=== PATIENT | female | born 1950 | race Caucasian/White ===

== ENCOUNTER → 2019-01-16 | Outpatient (CLI) | payer OTHER, BC ==
[~2019-01-16] VITALS: Ht 175.3 cm; Wt 83.9 kg
[~2019-01-16] MED LIST: COZAAR 25 MG TA25 M1 PO; SERTRALINE HCL100 MG PO
[2019-01-16 06:55] VITALS: BP 124/66
--- NOTE | 2019-01-16 08:39 | NUR ---
0820-PT RESPONDS TO VERBAL STIMULI. FAMILY AT BEDSIDE AND DR. GREGORY DISCUSSES AALIYAH RESULTS WITH THEM. PT HAS APPT WITH DR SANTOS NEXT WEEK. RESTING
--- NOTE | 2019-01-16 08:57 | TEE ---
[facility] [address] TRANSESOPHAGEAL ECHOCARDIOGRAM Name: JOSSIE HERNANDEZ [id number] Ad[facility]: 01/16/19 Attend Phys: Valentino Garza, Discharge: Date of : 46 Report #: [id number] THIS REPORT FOR: //name// APPROVED REPORT Study performed: 01/16/2019 07:39:44 EXAM: Transesophageal Echocardiogram Patient Location: Out-Patient Status: routine BSA: 2.00 HR: 68 bpm BP: 124/65 mmHg Rhythm: NSR Other Information Study Quality: Good Indications Mitral Valve Disease Echo Enhancing Agent Indication: Rule out Shunt Agent(s) / Amount(s) Used: Agitated Saline 8 cc Procedure After obtaining informed consent, patient underwent transesophageal echo in the [employer]. Type of Sedation : Conscious Sedation Sedation was achieved intravenously with: Versed (4) Fentanyl (200) Transesophageal probe was inserted and advanced into esophagus without difficulty by Valentino Garza MD. The AALIYAH was performed without complications. Throughout the procedure, the blood pressure, pulse oximetry, cardiac rhythm, and rate were monitored. The patient tolerated the procedure without adverse effects. Recovery from conscious sedation was uneventful and vital signs were stable. Left Ventricle The left ventricle is normal size. There is normal LV segmental wall motion. There is normal left ventricular wall thickness. Left ventricular systolic function is normal. LVEF 60%. [facility] [address] [place] [address] TRANSESOPHAGEAL ECHOCARDIOGRAM Name: JOSSIE HERNANDEZ Room #: REG [facility]#: [id number] Admission: 01/16/19 Attend Phys: Valentino Garza, Discharge: Date of : 46 Report #: [id number] Right Ventricle The right ventricle is normal size. The right ventricular systolic function is normal. Atria Left atrium is dilated. No thrombus is visualized in the left atrium or appendage. No shunting noted with contrast bubble injection. The right atrium size is normal. Aortic Valve The aortic valve is normal in structure. There is no aortic valvular stenosis. Mitral Valve Bileaflet mitral valve prolapse Moderately severe to severe mitral regurgitation Tricuspid Valve The tricuspid valve is normal in structure. Trace tricuspid regurgitation. Pulmonic Valve The pulmonary valve is normal in structure. Great Vessels The aortic root is normal in size. Ascending aorta is dilated (4.1cm). IVC is normal in size and collapses >50% with inspiration. Pericardium There is no pericardial effusion. <Conclusion> Left ventricular systolic function is normal. There is normal LV segmental wall motion. LVEF 60%. Left atrium is dilated. No thrombus is visualized in the left atrium or appendage. No shunting noted with contrast bubble injection. The aortic valve is normal in structure. No regurgitation or stenosis Bileaflet mitral valve prolapse. Moderately severe to severe mitral regurgitation [facility] [address] [place] [address] TRANSESOPHAGEAL ECHOCARDIOGRAM Name: JOSSIE HERNANDEZ Room #: REG [facility]#: [id number] Admission: 01/16/19 Attend Phys: Valentino Garza, Discharge: Date of : 46 Report #: [id number] Ascending aorta is dilated (4.1cm). There is no pericardial effusion. <ELECTRONICALLY SIGNED> By: Valentino Garza MD, FACC 01/16/1958 5 5 Valentino Garza MD, FACC /INF
== END | disposition home or self-care (01) ==
LOC: CATH 06:20
DX: I08.1 Rheumatic disorders of both mitral and tricuspid valves (principal); I77.819 Aortic ectasia, unspecified site; F41.9 Anxiety disorder, unspecified; I10 Essential (primary) hypertension; Z79.899 Other long term (current) drug therapy; Z98.890 Other specified postprocedural states

== ENCOUNTER → 2019-03-04 | Outpatient (CLI) | payer OTHER, BC | END | disposition home or self-care (01) | LOC: SJCVC 13:21 | DX: I10 Essential (primary) hypertension (principal); I34.0 Nonrheumatic mitral (valve) insufficiency; I47.1 Supraventricular tachycardia; Z80.9 Family history of malignant neoplasm, unspecified ==